=== PATIENT | male | born 1955 | race Caucasian/White ===

== ENCOUNTER 2024-01-28 13:10 | Outpatient (CLI) | payer MEDICARE, OTHER ==
[2024-01-28 14:22] LABS: #Basophils 0.11 10x3/uL (0.0-0.2); %Basophils 1.1 % (0.0-1.0); %Eosinophils 1.5 % (0.0-10.0); %Lymphocytes 23.9 % (21.0-51.0); %Monocytes 8.3 % (0.0-10.0); Hematocrit 46.8 % (42.0-52.0); Hemoglobin 15.3 g/dL (14.0-18.0); Mean Corpuscular HGB CONC 32.7 g/dL (32.0-36.0); Mean Corpuscular Hemoglobin 29.9 pg (27.0-31.0); Mean Corpuscular Volume 91.6 fL (78.0-98.0); Mean Platelet Volume 9.3 fL (7.4-10.4); Platelet Count 269 10x3/uL (130-400); RBC Distribution Width 12.8 % (11.5-14.5); Red Blood Cell (RBC) Count 5.11 mill/uL (4.70-6.10)
[2024-01-28 14:34] LABS: Prothrombin Time 13.4 sec (12.0-14.7)
[2024-01-28 14:35] LABS: PTT 26.1 sec (22.9-36.1)
[2024-01-28 14:40] LABS: Anion Gap 11 mmol/L (10-20); BUN (Urea Nitrogen) 12 mg/dL (8.4-25.7); Calc. Creatinine Clearance 0 mL/min (70-130); Carbon Dioxide 25 mmol/L (23-31); Chloride 105 mmol/L (98-107); Estimated GFR 89; Glucose 91 mg/dL (80-115); Potassium 3.8 mmol/L (3.5-5.1); Sodium 137 mmol/L (136-145)
== END 2024-01-28 13:11 | disposition home or self-care (01) ==
LOC: LABBT 13:10
PROVIDERS: ATTEND Orthopaedic Surgery
DX: Z01.818 Encounter for other preprocedural examination (principal); M17.11 Unilateral primary osteoarthritis, right knee
CPT/HCPCS: 80048; 85025; 85610; 85730; 87081

== ENCOUNTER 2024-01-28 13:56 | Outpatient (CLI) | payer MEDICARE, OTHER | END 2024-01-28 13:57 | disposition home or self-care (01) | LOC: CT 13:56 | PROVIDERS: ATTEND Orthopaedic Surgery | DX: M17.11 Unilateral primary osteoarthritis, right knee (principal) | CPT/HCPCS: 80048; 85025; 85610; 85730; 87081; 93005; 93010 ==

== ENCOUNTER 2024-02-12 07:50 | Observation (INO) | payer MEDICARE, OTHER ==
[2024-01-28 13:30] VITALS: BMI 29.5
[2024-02-12] MEDS ORDERED: Sodium Chloride 0.9% 100 ML ONE (09:35)
[2024-02-12] MEDS ORDERED: Tranexamic Acid 1,000 MG/10 ML VIAL ONE (09:35)
[2024-02-12] MEDS ORDERED: Vancomycin (BATCH) 1.5 GM/300 ML BAG ONE (09:35)
[2024-02-12] MEDS ORDERED: Midazolam HCl 2 mg/2 ml Vial ONE (09:56)
[2024-02-12] MEDS ORDERED: fentaNYL 50 mcg/mL 1 mL Vial ONE ×4 (09:56→12:13)
[2024-02-12] MEDS ORDERED: Ropivacaine 0.5% HCl/PF (150 MG/30 ML VIAL) ONE (09:56)
[2024-02-12] MEDS ORDERED: diphenhydrAMINE 25 MG CAP PO PRN (11:11)
[2024-02-12] MEDS ORDERED: Promethazine HCl 25 MG/ML VIAL IM PRN ×2 (11:11→11:15)
[2024-02-12] MEDS ORDERED: Zolpidem Tartrate 5 MG TAB PO PRN ×2 (11:11→11:15)
[2024-02-12] MEDS ORDERED: Acetaminophen 325 MG TAB PO PRN (11:11)
[2024-02-12] MEDS ORDERED: Morphine 2 MG/ML VIAL SLOW IVP PRN (11:11)
[2024-02-12] MEDS ORDERED: Ondansetron PF 4 MG/2 ML Vial IVP PRN ×2 (11:11→11:15)
[2024-02-12] MEDS ORDERED: Ropivacaine 0.2% 550 ML 550 ML NERVE BLCK SCH (11:15)
[2024-02-12] MEDS ORDERED: fentaNYL 50 mcg/mL 1 mL Vial SLOW IVP PRN (11:15)
[2024-02-12] MEDS ORDERED: PROPOFOL 20 ML ONE (11:15)
[2024-02-12] MEDS ORDERED: traMADol HCl 50 MG TAB PO PRN (11:15)
[2024-02-12] MEDS ORDERED: Lidocaine 1% PF 5 ML VIAL ONE (11:16)
[2024-02-12] MEDS ORDERED: CEFAZOLIN 2 GM VIAL ONE (11:22)
[2024-02-12] MEDS ORDERED: EPINEPHrine 1 MG/ML VIAL ONE (11:22)
[2024-02-12] MEDS ORDERED: Bupivacaine 0.25% HCL 30 ML VIAL ONE (11:22)
[2024-02-12] MEDS ORDERED: ePHEDrine Sulfate 50 MG/10 ML VIAL ONE (11:47)
[2024-02-12] MEDS ORDERED: PHENYLEPHRINE-NS 100 MCG/ML 10 ML SYRINGE ONE (11:50)
[2024-02-12] MEDS ORDERED: fentaNYL PF 100 MCG/2 ML SYRINGE ONE ×3 (12:41→14:49)
[2024-02-12] MEDS ORDERED: Ondansetron PF 4 MG/2 ML Vial ONE (13:11)
[2024-02-12] MEDS ORDERED: Ketorolac Tromethamine 30 MG (1 mL) VIAL ONE (13:17)
[2024-02-12] MEDS: Ketorolac Tromethamine 30 MG (1 mL) VIAL IVP SCH (13:19)
[2024-02-12] MEDS ORDERED: Ketorolac Tromethamine 30 MG (1 mL) VIAL IM SCH (14:00)
[2024-02-12] MEDS: Sodium Chloride 0.9% 1,000 ML IV SCH (17:47)
[2024-02-12] MEDS: traMADol HCl 50 MG TAB PO PRN (17:48)
[2024-02-12] MEDS: CEFAZOLIN 2 GM in Sodium Chloride 0.9% 100 ML IVPB SCH (20:34)
[2024-02-12] MEDS: Aspirin 81 mg Enteric Coated Tablet PO SCH (20:35)
[2024-02-12] MEDS: Senokot S 8.6-50 MG TAB PO SCH (20:35)
[2024-02-12] MEDS: Ferrous Gluconate 324 MG TAB PO SCH (20:35)
[2024-02-12] MEDS: Vancomycin (BATCH) 1.5 GM in Premix 1 BAG IVPB SCH (21:33)
[2024-02-13] MEDS: HYDROcodone/Acetaminophen 10/325 mg Tablet PO PRN ×2 (03:52→11:49)
[2024-02-13 05:49] LABS: Hematocrit 39.5 % (42.0-52.0); Mean Corpuscular HGB CONC 32.9 g/dL (32.0-36.0); Mean Corpuscular Hemoglobin 30.2 pg (27.0-31.0); Mean Corpuscular Volume 91.9 fL (78.0-98.0); Mean Platelet Volume 9.4 fL (7.4-10.4); Platelet Count 200 10x3/uL (130-400); RBC Distribution Width 13.1 % (11.5-14.5)
[2024-02-13 09:36] VITALS: BP 119/79; TEMP 99.1
[2024-02-13] MEDS: Multivitamin W/ Minerals 1 TAB PO SCH (09:39)
== END 2024-02-13 12:45 | disposition home or self-care (01) ==
LOC: SDC 07:50 → SURG B 16:47
PROVIDERS: ADMIT Orthopaedic Surgery; ATTEND Orthopaedic Surgery
PROC: 0SRC0JZ Replacement of Right Knee Joint with Synthetic Substitute, Open Approach (ICD-10-PCS; principal; 2024-02-12)
PROC: 3E0T3BZ Introduction of Anesthetic Agent into Peripheral Nerves and Plexi, Percutaneous Approach (ICD-10-PCS; 2024-02-12)
DX: M17.11 Unilateral primary osteoarthritis, right knee (principal); Z90.49 Acquired absence of other specified parts of digestive tract; Z90.89 Acquired absence of other organs; Z87.891 Personal history of nicotine dependence; Z79.82 Long term (current) use of aspirin
CPT/HCPCS: 0055T; 27447; 64448; 36415; 85027; A4306; C1713; C1776; C1889; J0171; J0665; J1885; J2250; J2405; J2704; J2795; J3010; J3370; J7030